=== PATIENT | male | born 1965 | race Hispanic/Latino ===

== ENCOUNTER 2019-12-12 09:29 | Emergency (ER) | payer OTHER ==
[2019-12-12] MEDS ORDERED: MORPHINE SULFATE INJ 10 MG/ML VIAL IV ONE (09:36)
[2019-12-12] MEDS ORDERED: ONDANSETRON INJ 4 MG/2 ML VIAL IV ONE (09:36)
[2019-12-12] MEDS ORDERED: ceFAZolin SODIUM 2 GM in SODIUM CHLORIDE 0.9% 100ML 100 ML IVPB ONE (09:37)
[2019-12-12] MEDS ORDERED: LIDOCAINE 2% W/ EPINEPHRINE 20 ML VIAL INJ ONE (09:37)
[2019-12-12] MEDS ORDERED: TETANUS,DIPHTHERIA,PERTUSSIS 1 EA SYG IM ONE (09:37)
--- NOTE | 2019-12-12 09:49 | ED.PDOC ---
History of Present Illness - General Chief Complaint: Trauma Stated Complaint: Gored by a deer in the L leg Time Seen by Provider: 12/12/19 09:32 Source: patient, RN notes reviewed, Vital Signs reviewed, family Exam Limitations: language barrier - Son is interpreting at patient request - History of Present Illness Initial Comments: Pt is a 54 yo male who presents to ED for left leg injury. 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 States he also has abrasions to left abdomen and right leg from trying to get away and through the fence. Denies CP, SOB, abdominal pain, head injury or other injuries. Last tetanus was > 10 years ago. Allergies/Adverse Reactions: Allergies NO KNOWN ALLERGY Allergy (Verified 12/12/19 09:58) Home Medications: Ambulatory Orders Acetaminophen W/ Codeine [Tylenol W/ CODEINE #3] 1 tablet PO Q6H PRN #20 12/12/19 Cephalexin Monohydrate [Keflex] 500 mg PO Q6H 10 Days #40 cap 12/12/19 Review of Systems - Review of Systems Constitutional: Denies: chills, fever, weakness EENTM: Denies: blurred vision, double vision, nose congestion, throat pain Respiratory: Denies: cough, short of breath, wheezing Cardiology: Denies: chest pain, edema, palpitations, syncope Gastrointestinal/Abdominal: Denies: abdominal pain, nausea Genitourinary: States: no symptoms reported Musculoskeletal: States: other - left leg laceration Neurological: Denies: headache, paresthesia, weakness All other Systems: Reviewed and Negative Family Medical History - Family History Paternal Family History: Unknown Physical Exam - Physical Exam General Appearance: Alert, Comfortable, No apparent distress Neck: non-tender, full range of motion, supple Respiratory: chest non-tender, lungs clear, normal breath sounds Cardiovascular/Chest: normal peripheral pulses, regular rate, rhythm, no edema Peripheral Pulses: dorsalis pedis,right: 2+, dorsalis pedis,left: 2+, posterior tibialis,right: 2+, posterior tibialis,left: 2+ Gastrointestinal/Abdominal: non tender, soft Back Exam: normal inspection, no CVA tenderness, no vertebral tenderness Extremity: normal range of motion, other - There is a 4 cm horizontal laceration to left anterior mid thigh with no active bleeding. Pt has FROM to LLE. Compartments are soft. injury is not intraarticular as it is proximal to knee joint. 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 there are superficial abrrasions to right anterior lower leg with no bony tenderness. Progress - Progress Progress: 12/12/19 11:04 Pt presents with laceration to left thigh from antler injury from a deer. There is a 4 cm horizontal laceration to anterior mid thigh. There is mild tenderness around this area. All compartments are soft. No significant edema. Has 2+ distal pulses with good sensation and is NVI at this time. I have discussed symptoms of compartment syndrome and patient understands that he is to return immediately for any of these symptoms. Given Ancef and Tetanus in ED and will DC home on Keflex for prophylaxis. I have given DC instructions for laceration care and compartment syndrome so that he will know warning signs to return. Wound care discussed and will return in 10-12 days for suture removal. - Results/Orders Results/Orders: Left thigh xray Clinical history: injury. Technique: Five views of the left thigh. Findings: Normal appearance of the left hip, femur and knee . There is no fracture or dislocation. No destructive lesion. Impression: No acute skeletal abnormality. Procedures - Laceration/Wound Repair Left Thigh Wound Length (cm): 4 Wound's Depth, Shape: into muscle, linear Irrigated w/ Saline (cc's): 1,000 Betadine Prep?: No Anesthesia: Lidocaine w/ Epi Volume Anesthetic (cc's): 8 Wound Repaired With: sutures Suture Size/Type: 3:0, prolene Number of Sutures: 6 Layer Closure?: No Sterile Dressing Applied?: Yes Splint Applied?: No Departure - Departure Clinical Impression: Contusion of left thigh, initial encounter Laceration of left thigh Qualifiers: Encounter type: initial encounter Qualified Code(s): S71.112A - Laceration without foreign body, left thigh, initial encounter Time of Disposition: 10:59 Disposition: Discharge to Home or Self Care Condition: Good Departure Forms: ED Discharge - Pt. Copy, Patient Portal Self Enrollment Instructions: DI for Trauma, Acute Compartment Syndrome (DC), Laceration Repair With Stitches (DC) Diet: resume usual diet Activity: increase activity as tolerated Prescriptions: Acetaminophen W/ Codeine [Tylenol W/ CODEINE #3] 1 tablet PO Q6H PRN #20 PRN Reason: Pain Cephalexin Monohydrate [Keflex] 500 mg PO Q6H 10 Days #40 cap Home Medications: Ambulatory Orders Acetaminophen W/ Codeine [Tylenol W/ CODEINE #3] 1 tablet PO Q6H PRN #20 12/12/19 Cephalexin Monohydrate [Keflex] 500 mg PO Q6H 10 Days #40 cap 12/12/19 Additional Instructions: If you have increased swelling or pain to thigh or numbness, tingling of cold sensation to lower leg return to ED for further evaluation.
[2019-12-12] MEDS ORDERED: ceFAZolin SODIUM 1 GM VIAL ONE (10:07)
[2019-12-12] MEDS ORDERED: SODIUM CHLORIDE 0.9% 100ML 100 ML IVPB ONE (10:07)
--- NOTE | 2019-12-12 10:39 | RAD ---
Sex: Male. : 1965. Clinical history: injury. Technique: Five views of the left thigh. Findings: Normal appearance of the left hip, femur and knee . There is no fracture or dislocation. No destructive lesion. Impression: No acute skeletal abnormality. Electronically signed by: Juan Francisco Murphy MD 12/12/2019 10:37 AM TYRE RETREADER
[2019-12-12] MEDS ORDERED: NEOMYCIN-BACITRACIN-POLYMYXIN 0.9 GM UD TOP ONE (10:55)
[2019-12-12 11:41] VITALS: O2SAT 94
[2019-12-12 12:03] VITALS: BP 124/83; TEMP 98.3
== END 2019-12-12 11:45 | disposition home or self-care (01) ==
LOC: ER 09:29
DX: S71.112A Laceration without foreign body, left thigh, initial encounter (principal); W55.32XA Struck by other hoof stock, initial encounter; S30.811A Abrasion of abdominal wall, initial encounter; S80.811A Abrasion, right lower leg, initial encounter; Y93.89 Activity, other specified; Y92.89 Other specified places as the place of occurrence of the external cause
CPT/HCPCS: 73551; 90471; 90715; J0690; J2270; J2405; J7050

== ENCOUNTER 2020-03-04 16:46 | Emergency (ER) | payer SELFPAY ==
[2020-03-04] MEDS ORDERED: SODIUM CHLORIDE 0.9% (FLUSH) 10 ML SYG IV PRN (17:04)
[2020-03-04] MEDS ORDERED: SODIUM CHLORIDE 0.9% 1000ML 1,000 ML IVS ONE (17:06)
[2020-03-04] MEDS ORDERED: KETOROLAC TROMETHAMINE INJ 30 MG/ML VIAL IV ONE (17:06)
[2020-03-04] MEDS ORDERED: MORPHINE SULFATE INJ 10 MG/ML VIAL IV ONE ×2 (17:07→18:18)
--- NOTE | 2020-03-04 17:46 | ED.PDOC ---
History of Present Illness - General Chief Complaint: Trauma Stated Complaint: Pt slid off of a roof ~12 feet Time Seen by Provider: 03/04/20 17:04 Source: patient, EMS - History of Present Illness Initial Comments: 55 yo male bib EMS from work for cc of Left UE pain and abdominal pain following fall from 12 feet height which occurred just [employer]. Pt states he slipped and fell off a 12 ft roof onto the ground - landed on his upper back and left side. Also reports some blunt injury to his head and neck but denies LOC. Reports pain primarily to Left upper arm - constant burning 6/10 severity pain, no radiation, worse with palpation and arm movement, no meds given [employer]NTHE[employer]TER. Denies deformity/weakness/numbness. Denies elbow pain. There is an abrasion to the left upper arm posteriorly reported by EMS. Abd pain is located to RLQ, constant, 7/10 severity, sharp, worse with palpation. Denies n/v/d, urinary sx's. Also reports upper back pain, constant, 4/10 severity, dull. Reports mild headache and posterior neck pain. Denies chest pain, dyspnea, vision changes, confusion, pelvic/hip pain, LE pain. Not on blood thinners. Remembers the entire event. Did not attempt to ambulate on scene. Allergies/Adverse Reactions: Allergies NO KNOWN ALLERGY Allergy (Verified 03/04/20 17:29) Home Medications: Ambulatory Orders Acetaminophen W/ Codeine [Tylenol W/ CODEINE #3] 1 ea PO Q6H PRN 10 Days #20 03/04/20 Review of Systems - Review of Systems Review of Systems: 03/04/20 17:48 as per HPI All other Systems: Reviewed and Negative Past Medical History (General) - Patient Medical History Hx Stroke: No Hx of COPD: No Hx Cardiac Disorders: No Hx Hypertension: No Hx Diabetes: No Hx Cancer: No Surgical History: other - Vaccination History Hx Tetanus, Diphtheria Vaccination: No Hx Influenza Vaccination: Yes Hx Pneumococcal Vaccination: No Immunizations Up to Date: No - Social History Hx Tobacco Use: No Hx Alcohol Use: Yes Hx Substance Use: No Hx Substance Use Treatment: No Hx Depression: No - Female History Patient is a Female of Child Bearing Age (10 -59 yrs old): No Patient : No Family Medical History - Family History Paternal Family History: Unknown Physical Exam - Physical Exam General Appearance: Alert, No apparent distress Head Injury: no evidence of injury Eye Exam: bilateral normal ENT Exam: no evidence of ENT injury, no dental injury Neck Exam: non-tender, normal inspection Cardiovascular/Respiratory: regular rate, rhythm, no M/R/G, normal peripheral pulses, no JVD, normal breath sounds, no respiratory distress Gastrointestinal/Abdominal: soft, no organomegaly, tenderness - moderate to RLQ with some guarding Back Exam: normal inspection, vertebral tenderness - midline vertebral ttp at approx T5-6 & L1 regions w/o stepoffs/swelling/deformity Extremity Exam: other - Left upper posterior arm with mild abrasion injuries and moderate ttp with moderate soft tissue swelling and ecchymosis but w/o deformity, ROM of L shoulder moderately limited lisa abduction due to pain, strength/sensation intact throughout, radial pulses 2+ and equal 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 CT A/P read still pending but no acute processes per my read. CXR no acute processes per my read. Left humerus XR no acute frx's per my read. -Labs reveal mild ALT/AST elevation - can f/u with PCP for further work-up, advised no alcohol use until PCP clearance. Otherwise labs pretty unremarkable. -Awaiting CT A/P read before further dispo -C-collar cleared. 03/04/20 19:15 -CT A/P still not read, reason for delay in patient dispo. Will call to check on status of read. 03/04/20 19:28 -CT A/P resulted - no acute processes. Pt has remained stable, pain much improved. -Left posterior upper arm developed further swelling and bruising in ED - suspect developing soft tissue hematoma. Cold pack placed. Advised pt & daughter at bedside to monitor for signs of rapid expansion or N/V compromise. -Will dc to home in good condition. Given PRN Rx of Tylenol #3 and work note. F/u closely with PCP, return warnings discussed at length. Nathan Parish MD Billing #[id number] 03/04/20 17:04 Sodium Chloride 0.9% (Flush) [Saline Flush Syringe] 10 ml IV PRN PRN 03/04/20 17:05 Abdoment/Pelvis w/o Contrast [CT] Stat Pulse Oximetry Assessment DAILY 03/04/20 17:07 URINALYSIS Stat 03/04/20 17:15 EKG STAT 03/04/20 17:45 Shoulder,Left 2 or More Views [RAD] Stat 03/05/20 09:00 Pulse Ox Daily Laboratory Results - last 24 hr 03/04/20 03/04/20 03/04/20 17:00 17:00 17:05 WBC 9.6 RBC 4.52 L Hgb 14.9 Hct 42.9 MCV 95.0 H MCH 32.9 H MCHC 34.6 RDW 13.4 Plt Count 151 MPV 10.2 Absolute Neuts (auto) 5.50 Absolute Lymphs (auto) 3.20 Absolute Monos (auto) 0.70 Absolute Eos (auto) 0.20 Absolute Basos (auto) 0.00 Neutrophils % 56.8 Lymphocytes % 33.7 Monocytes % 7.5 Eosinophils % 1.7 Basophils % 0.3 PT 11.1 H INR 1.12 PTT (SP) 23.8 Sodium 139 Potassium 3.5 L Chloride 106 Carbon Dioxide 25 Anion Gap 11.5 L BUN 14 Creatinine 0.90 BUN/Creatinine Ratio 15.6 Random Glucose 110 H Serum Osmolality 278.7 Calcium 8.9 Total Bilirubin 0.8 AST 63 H ALT 70 H Alkaline Phosphatase 81 Troponin I Serum Total Protein 7.4 Albumin 4.2 Globulin 3.2 Albumin/Globulin Ratio 1.3 03/04/20 17:07 WBC RBC Hgb Hct MCV MCH MCHC RDW Plt Count MPV Absolute Neuts (auto) Absolute Lymphs (auto) Absolute Monos (auto) Absolute Eos (auto) Absolute Basos (auto) Neutrophils % Lymphocytes % Monocytes % Eosinophils % Basophils % PT INR PTT (SP) Sodium Potassium Chloride Carbon Dioxide Anion Gap BUN Creatinine BUN/Creatinine Ratio Random Glucose Serum Osmolality Calcium Total Bilirubin AST ALT Alkaline Phosphatase Troponin I < 0.02 Serum Total Protein Albumin Globulin Albumin/Globulin Ratio - EKG/XRAY/CT CT Ordered: Yes CT Interpretation Call Back: No Departure - Departure Clinical Impression: Traumatic hematoma of left upper arm, Contusion of abdominal wall, initial encounter, Contusion of upper back, Fall from height of greater than 3 feet Time of Disposition: 19:27 Disposition: Discharge to Home or Self Care Condition: Fair Departure Forms: ED Discharge - Pt. Copy, ED Discharge - Work Release, Patient Portal Self Enrollment Instructions: DI for Trauma, Contusion (DC) Diet: resume usual diet Activity: increase activity as tolerated Prescriptions: Acetaminophen W/ Codeine [Tylenol W/ CODEINE #3] 1 ea PO Q6H PRN 10 Days #20 PRN Reason: Pain Home Medications: Ambulatory Orders Acetaminophen W/ Codeine [Tylenol W/ CODEINE #3] 1 ea PO Q6H PRN 10 Days #20 03/04/20 Additional Instructions: Remain well-hydrated and slowly advance activity level back to normal over next 10-14 days. I advise light use of the Left upper extremity for next 7 days (no lifting >5 lbs, no overhead reaching, no repetitive usage, etc...) and then after that may gradually return to normal usage after that. Continue taking ibuprofen 600 mg every 6 hours and Tylenol 650 mg every 6 hours as needed. Take Tylenol #3 as needed for breakthrough pain but do not drive or operate heavy machinery or work from heights while taking. I also recommend you always wear a safety harness when working from heights. Follow up with your primary care doctor in 1-2 weeks for repeat evaluation.
--- NOTE | 2020-03-04 18:07 | RAD ---
EXAM DESCRIPTION: Humerus,Left CLINICAL HISTORY: 55 years Male fall from 12 ft height, Left UE pain COMPARISON: None TECHNIQUE: AP and lateral views of the left humerus are obtained. FINDINGS: OSSEOUS: There is no evidence of acute fracture or osteolytic/osteoblastic lesions. There is no evidence of subluxation or dislocation. The joint spaces are preserved. There is minimal marginal osteophytosis in the acromioclavicular joint and elbow joint consistent with mild primary osteoarthritis. There is no evidence of marginal erosive changes to suggest an inflammatory arthritis. SOFT TISSUE: There is no significant soft tissue swelling or mass. No evidence of significant soft tissue calcifications. No radiopaque foreign bodies. IMPRESSION: No acute osseous abnormalities. Electronically signed by: Lauryn Baidr MD 03/04/2020 6:05 PM CDT
--- NOTE | 2020-03-04 18:12 | CT ---
EXAM DESCRIPTION: Cervical Spine CLINICAL HISTORY: 55 years Male fall from 12 ft height, closed head injury COMPARISON: None TECHNIQUE: Contiguous axial images were obtained through the cervical spine. Coronal and sagittal reconstructions are also obtained and reviewed. This exam was performed according to our departmental dose-optimization program, which includes automated exposure control, adjustment of the mA and/or kV according to patient size and/or use of iterative reconstruction technique. The study is limited by artifacts related to motion, most severe from C4 through C7.. FINDINGS: VERTEBRAE: There is no evidence of acute fracture, osseous destruction or osteoblastic changes. There is no evidence of subluxation or dislocation. Vertebral body heights are maintained. There is no gross malalignment. There are mild hypertrophic degenerative change in the anterior atlantodental articulation. DISCS AND NEURAL FORAMINA: There is mild narrowing of the disc space at C5-6. There is vertebral body and uncovertebral marginal osteophyte formation from C3-C6. Disc spaces are otherwise maintained. The neural foramina are patent with the exception of mild neural foraminal encroachment bilaterally at C3-4.. SOFT TISSUES: The prevertebral soft tissues are normal. There is no evidence of lymphadenopathy. LUNG APICES: The visualized lung apices show no gross pneumonia, mass or pneumothorax. OTHER OSSEOUS STRUCTURES: The visualized portions of the skull base and brain are normal. IMPRESSION: NO ACUTE OSSEOUS ABNORMALITIES. However, this study is technically limited by motion artifact particularly in the assessment of the C4-C7 levels. (Please note that spinal CT scan examinations have limited accuracy in evaluating epidural disease. Correlation with MRI exam (or myelography as clinically appropriate) is suggested if there is clinical concern for epidural disease such as intervertebral disc herniations, epidural abscess/hematoma, or epidural neoplasm.) Electronically signed by: Lauryn Baird MD 03/04/2020 6:11 PM CDT
--- NOTE | 2020-03-04 18:16 | CT ---
PROCEDURE: CT Head Without Intravenous Contrast CLINICAL INDICATION: The patient is 55 years years old, Male; fall from 12 ft height, closed head injury TECHNIQUE: Axial computed tomography images of the head/brain without intravenous contrast. Sagittal and coronal reformatted images were created and reviewed. This CT exam was performed using one or more of the following dose reduction techniques: automated exposure control, adjustment of the mA and/or kV according to patient size, and/or use of iterative reconstruction technique. COMPARISON: No relevant prior studies available. FINDINGS: BRAIN: Prominence of sulci, sylvian fissures cerebellar folia and basilar cisterns is consistent with volume loss, greater than expected for age. No intracerebral or extracerebral mass lesions are identified. Delcid/white matter distinction is maintained. There is no evidence of intracranial hemorrhage. There are no areas of acute territorial infarct. (It should be noted that acute infarct may not be discernible in the first [address] ) Benign bilateral globus pallidus calcification present. MIDLINE SHIFT: There is no shift of the midline structures. VENTRICLES: The ventricles are normal in size and configuration. BONES/JOINTS: There is no acute calvarial abnormality or other discernible acute osseous abnormalities. SOFT TISSUES: The extracranial soft tissues are unremarkable. SINUSES: There is opacification of the right maxillary sinus which also appears hypoplastic and demonstrates thickening of the osseous dickinson indicating chronic sinusitis. The remainder of the visualized paranasal sinuses are clear. MASTOID AIR CELLS: The mastoids and middle ears are clear. IMPRESSION: 1. Volume loss, greater than expected for age, can occur in patient's with history of alcohol abuse or chronic use of certain medications such as dilantin. Premature dementia also a consideration in older patients. 2. No acute intracranial abnormality. A negative head CT does not exclude an acute CVA. A followup head CT or MRI is recommended if neurologic symptoms persist. 3. Remainder of findings as discussed above. Electronically signed by: Lauryn Baird MD 03/04/2020 6:15 PM CDT
--- NOTE | 2020-03-04 18:18 | RAD ---
EXAM DESCRIPTION: Chest,1 View CLINICAL HISTORY: 55 years Male Fall from 12 feet height, upper back pain COMPARISON: None TECHNIQUE: Portable AP view of the chest is obtained. FINDINGS IN THE CHEST: Heart: Allowing for magnification factors related to AP portable technique and body habitus, the heart is normal in size and configuration. Vasculature: There is minimal tortuosity of the aorta. [] There is no evidence of aortic aneurysm or acute findings. The pulmonary vascularity is normal. Mediastinum: No evidence of mass or adenopathy. Lungs: The study is obtained during a suboptimal depth of inspiration with resultant decreased lung volumes. There is no focal consolidation in the lungs. Pleura: There are no pleural effusions. There are no pneumothoraces. Osseous structures: No evidence of acute fracture, osteolytic lesions or osteoblastic lesions. There are degenerative changes in the spine. Tubes and catheters: None Chest wall: Unremarkable. Visualized Abdomen: Unremarkable. IMPRESSION: No significant [acute ] radiographic abnormalities in the chest. Remainder of findings as described above. Electronically signed by: Lauryn Baird MD 03/04/2020 6:16 PM CDT
[2020-03-04] MEDS ORDERED: ONDANSETRON INJ 4 MG/2 ML VIAL IV ONE (18:19)
--- NOTE | 2020-03-04 18:24 | CT ---
PROCEDURE: CT Chest Without Intravenous Contrast CLINICAL INDICATION: The patient is 55 years years old, Male; fall from 12 ft height, upper back pain TECHNIQUE: Axial computed tomography images of the chest without intravenous contrast. Sagittal and coronal reformatted images were created and reviewed. This CT exam was performed using one or more of the following dose reduction techniques: automated exposure control, adjustment of the mA and/or kV according to patient size, and/or use of iterative reconstruction technique. COMPARISON: No relevant prior studies available. FINDINGS: LUNGS: Faint groundglass opacification is noted in the left lung and in the basal segments of the right lower lung which may be related to hypoventilation and/or motion artifacts. Nonspecific pulmonary edema and/or infection not excludable. PLEURAL SPACE: There is no evidence of pleural fluid or pneumothorax. HEART: The heart and pericardium are normal. There is no pericardial fluid or thickening. BONES/JOINTS: There is no evidence of acute fracture, osseous destruction or osteoblastic changes. There is multilevel thoracic spondylosis. There is a mild upper dextroconvex thoracic curve. SOFT TISSUES: Unremarkable. VASCULATURE: Within limits of a noncontrast study, the aorta is unremarkable without evidence of an aneurysm or discernible acute injury. LYMPH NODES: Unremarkable. There is no evidence of hilar, mediastinal or axillary adenopathy. IMPRESSION: Faint groundglass opacification is noted in the left lung and in the basal segments of the right lower lung which may be related to hypoventilation and/or motion artifacts. Nonspecific pulmonary edema and/or infection not excludable. No acute osseous abnormalities. Electronically signed by: Lauryn Baird MD 03/04/2020 6:23 PM CDT
--- NOTE | 2020-03-04 19:24 | CT ---
PROCEDURE: CT Abdomen and Pelvis Without Intravenous Contrast CLINICAL INDICATION: The patient is 55 years years old, Male; fall from 12 ft height, RLQ abd pain TECHNIQUE: Axial computed tomography images of the abdomen and pelvis without intravenous contrast. Sagittal and coronal reformatted images were created and reviewed. This CT exam was performed using one or more of the following dose reduction techniques: automated exposure control, adjustment of the mA and/or kV according to patient size, and/or use of iterative reconstruction technique. COMPARISON: No relevant prior studies available. FINDINGS: LUNG BASES: Lung bases demonstrate probable dependent atelectasis. Faint groundglass opacification in the basal segments is probably related to motion artifact and hypoventilation versus mild edema or infection. PLEURAL SPACE: There is no evidence of pneumothorax or pleural fluid. ABDOMEN: LIVER: See below. GALLBLADDER AND BILE DUCTS: Unremarkable. There is no evidence of calculi or pericholecystic inflammatory changes. There is no biliary ductal dilatation. PANCREAS: Unremarkable. No ductal dilatation, inflammatory changes or mass. SPLEEN: Unremarkable. No splenomegaly or focal defects. ADRENALS: Unremarkable. No mass or calcification. KIDNEYS AND URETERS: Unremarkable. There are no acute findings. There is no evidence of solid renal mass, nonobstructive intrarenal calculi or pelvocaliectases/ureterectases. 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 PELVIS: APPENDIX: The appendix is present and appears normal. BLADDER: Unremarkable, allowing for the degree of distention. There is no evidence of cystolithiasis or bladder mass. REPRODUCTIVE: The prostate and seminal vesicles are unremarkable. ABDOMEN and PELVIS: INTRAPERITONEAL SPACE: There is no evidence of free air or free fluid. BONES/JOINTS: There is no evidence of acute fracture, osseous destruction or osteoblastic changes. There is multilevel vertebral body marginal osteophytosis indicating spondylosis. There is scattered enthesopathy. There are mild degenerative changes in the SI joints and symphysis pubis. SOFT TISSUES: Unremarkable. VASCULATURE: Unremarkable. No abdominal aortic aneurysm. LYMPH NODES: Unremarkable. There is no evidence of mesenteric, retroperitoneal, pelvic or inguinal adenopathy. IMPRESSION: No acute findings in the abdomen or pelvis. Electronically signed by: Lauryn Baird MD 03/04/2020 7:23 PM CDT
[2020-03-04 19:53] VITALS: BP 140/87; TEMP 97.7; O2SAT 100
== END 2020-03-04 19:50 | disposition home or self-care (01) ==
LOC: ER 16:46
DX: S40.022A Contusion of left upper arm, initial encounter (principal); S30.1XXA Contusion of abdominal wall, initial encounter; R10.31 Right lower quadrant pain; R51 Headache; W13.2XXA Fall from, out of or through roof, initial encounter; Y92.9 Unspecified place or not applicable
CPT/HCPCS: 36416; 70450; 71045; 71250; 72125; 73030; 73060; 74176; 80053; 81001; 84484; 85025; 85610; 85730; 93005; J1885; J2270; J2405; J7030